=== PATIENT | female | born 1960 | race Caucasian/White ===

== ENCOUNTER → 2019-07-11 | Outpatient (CLI) | payer OTHER | LOC: MRI 07:27 | DX: M47.816 Spondylosis without myelopathy or radiculopathy, lumbar region (principal); M47.814 Spondylosis without myelopathy or radiculopathy, thoracic region; M51.24 Other intervertebral disc displacement, thoracic region; M51.26 Other intervertebral disc displacement, lumbar region; M12.88 Other specific arthropathies, not elsewhere classified, other specified site; M48.061 Spinal stenosis, lumbar region without neurogenic claudication; M51.27 Other intervertebral disc displacement, lumbosacral region ==

== ENCOUNTER → 2019-08-11 | Outpatient (CLI) | payer OTHER ==
[~2019-08-11] VITALS: Ht 170.2 cm; Wt 104.3 kg
[~2019-08-11] MED LIST: ASA81BEC PO; FLEXERIL PO; HYDROCODON-ACE1 EAC8 PO; NAPROXEN SODIU220 M2 PO; OMEPRAZOLE 20 M20 M1 PO; SUPER THERAVIT1 EACH PO; TURMERIC COMPL1 EACH PO; VITAMIN B COMP1 EACH PO; VITAMIN C500 M2 PO; herbal supplement PO
[2019-08-11 14:16] VITALS: BP 145/65
--- NOTE | 2019-08-11 14:45 | NUR ---
Pain Clinic Assessment: 1. History of Osteoarthritis: Not Applicable History of Rheumatoid Arthritis: Not Applicable 2. Height: 5 ft. 7 in. 170.2 cm. Weight: 230.0 lb. oz. 104.328 kg. Patient's BMI: 36.0 3. Vital Signs: BP: 145/65 Pulse: 65 Resp: 16 Temp: 02 Sat: 100 ECG Mon: 4. Pain Intensity: 3 5. Fall Risk: Dizziness: N Needs help standing or walking: N Fallen in the last 3 months: N Fall risk comments: 6. Patient on Blood Thinner: None 7. History of Hypertension: N 8. Opioid Therapy greater than 6 weeks: Y Opiate Contract Signed: 9. Risk Assessment Tool Provided: LOW-0 10. Functional Assessment Tool: 5 11. Recreational Drug Use: Never Drug Type: Tobacco Use: Never Smoker Tobacco Type: Amount or Packs/day: How Many Years: Alcohol Use: Yes Frequency: Weekly Quant: 3
--- NOTE | 2019-08-18 14:31 | HPC ---
[facility] Anjum Rojo [place] [address] PAIN MANAGEMENT CONSULTATION Name: AUGUSTIN ALFORD Room #: REG [facility].#: [id number] Admission: 08/11/19 Attend Phys: Alin Davis MD Discharge: Date of : 64 Report #: [id number] THIS REPORT FOR: cc: John Ledesma,Alin Lambert MD ~ THIS REPORT FOR: //name// CC: John Joya DATE OF SERVICE: 08/11/2019 CHIEF COMPLAINT: Low back pain radiating into her right calf. HISTORY OF PRESENT ILLNESS: The patient is a rhona 58-year-old who Dr. Ledesma has asked me to see today for assessment of lumbar radiculopathy. She has had a 2-year chronic pain in her lumbosacral region that wraps around her left pelvis, but also shoots down into her right leg following an L4-L5 distribution. It is worse with lying at night. She is having some sleep deprivation. It is improved with standing and walking. She described it as a cramping, sharp, stabbing, gnawing pain. Pain intensity can be as high as an 8/10. MEDICATIONS: Naproxen sodium 220 per day, vitamin C, vitamin B, turmeric, aspirin, herbal supplement pain alina, cyclobenzaprine 10 mg p.r.n. less than 3 times weekly and hydrocodone 7.5/325. She is very cautious taking it almost once a week and no more. She only uses it for very severe pain. She has omeprazole for history of gastritis. ALLERGIES: None. PAST MEDICAL HISTORY: Positive for anemia. She had a gastric ulcer many years ago and is on Prilosec. She does take a nonsteroidal anti-inflammatory drug, but just once daily. It does not seem to bother her with the Prilosec. She has never tried Celebrex. She has had an Achilles tendon release in 2009, cholecystectomy 2005, appendectomy 2004. She had a cyst on her esophagus and underwent a thoracotomy in [place], [place] by Dr. Mike Gonzalez in 1984. She also has had carpal tunnel release and some foot surgery in 2002. 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 She denies use of tobacco. She drinks alcohol 2 or 3 times a week in a social setting. PHYSICAL EXAMINATION: GENERAL: Very pleasant female, alert and oriented. No signs of depression or [address] [address] PAIN MANAGEMENT CONSULTATION Name: AUGUSTIN ALFORD Room #: REG [facility]#: [id number] Admission: 08/11/19 Attend Phys: Alin Davis MD Discharge: Date of : 64 Report #: [id number] anxiety. She is 5 feet 7 inches, 230 with a BMI of 36.0. She moves independently from sitting to standing position. Her gait is nonantalgic. VITAL SIGNS: Blood pressure 145/65, heart rate 65, respirations 16, O2 sat 100. CHEST: Clear. CARDIAC: Rhythm is regular with a small systolic ejection murmur, which is likely functional. She has no symptoms of a cardiac nature. No shortness of breath or dyspnea. MUSCULOSKELETAL: Examination of the spine reveals mild tenderness. There is straight leg raising discomfort consistent with radiculopathy on the right that goes all the way to the calf. NEUROLOGIC: I note no weakness and sensation is normal. Deep tendon reflexes are 2+, knees and ankles. IMAGING: MRI scan is reviewed and is consistent with her symptoms. She has central canal stenosis, bilateral recess stenosis, bilateral foraminal stenosis at L3-L4 and L4-L5. She has facet arthropathy at several levels. IMPRESSION: Right lumbar radiculopathy. Pain follows an L4-L5 distribution. I would recommend that we proceed with an injection. Preauthorization will be obtained and we will go forward with the injection at her soonest convenience and once we receive preauthorization. Followup visit planned in the pain clinic in 1-2 weeks. <ELECTRONICALLY SIGNED> By: Alin Davis MD 08/18/19 [id number] Alin Davis MD /nt
== END ==
LOC: PAIN 08-10 10:58
DX: M54.16 Radiculopathy, lumbar region (principal); Z79.899 Other long term (current) drug therapy; Z79.891 Long term (current) use of opiate analgesic

== ENCOUNTER → 2019-09-01 | Outpatient (CLI) | payer OTHER ==
[~2019-09-01] VITALS: Ht 170.2 cm; Wt 106.1 kg
--- NOTE | ~2019-09-01 | P ---
[facility] [place] [address] PROCEDURE REPORT Name: AUGUSTIN ALFORD Room #: REG [facility].#: [id number] Admission: 09/01/19 Attend Phys: Alin Davis MD Discharge: Date of : 64 Report #: [id number] THIS REPORT FOR: cc: John Ledesma,Alin Lambert MD ~ CC: John Davis DATE OF SERVICE: 09/01/2019 PROCEDURE NOTE PROCEDURE PERFORMED: Lumbar epidural steroid injection L3-L4, right paramedian under fluoroscopic guidance. INDICATION FOR PROCEDURE: The patient has lumbar radiculopathy and spinal stenosis at L3-L4 and L4-L5. She was seen on 08/11/2019. Refer to that dictation for assessment. DESCRIPTION OF PROCEDURE: After informed consent, the patient was taken to fluoroscopic suite, placed prone, skin prepped with ChloraPrep. Skin was anesthetized over the L3-L4 interspace. A 20-gauge Tuohy epidural needle was advanced into the epidural space using loss of resistance technique in the first attempt. There was no blood or CSF aspirated. A 1 mL of Omnipaque was injected. Good spread of dye was observed into the epidural space followed by 3 mL of 0.5% lidocaine mixed with 80 mg of triamcinolone. She tolerated the procedure well and was observed for 45 minutes and discharged. Follow up as needed. By: [id number] Alin Davis MD /siva
[2019-09-01 14:46] VITALS: BP 162/77
--- NOTE | 2019-09-01 14:50 | NUR ---
Pain Clinic Assessment: 1. History of Osteoarthritis: Not Applicable History of Rheumatoid Arthritis: Not Applicable 2. Height: 5 ft. 7 in. 170.2 cm. Weight: 234.0 lb. oz. 106.142 kg. Patient's BMI: 36.6 3. Vital Signs: BP: 162/77 Pulse: 64 Resp: 16 Temp: 02 Sat: 100 ECG Mon: 4. Pain Intensity: 7 5. Fall Risk: Dizziness: N Needs help standing or walking: N Fallen in the last 3 months: N Fall risk comments: 6. Patient on Blood Thinner: None 7. History of Hypertension: N 8. Opioid Therapy greater than 6 weeks: Y Opiate Contract Signed: 9. Risk Assessment Tool Provided: LOW-0 10. Functional Assessment Tool: 5 11. Recreational Drug Use: Never Drug Type: Tobacco Use: Never Smoker Tobacco Type: Amount or Packs/day: How Many Years: Alcohol Use: Yes Frequency: Quant:
== END | disposition home or self-care (01) ==
LOC: PAIN 07:06
DX: M54.16 Radiculopathy, lumbar region (principal); M48.061 Spinal stenosis, lumbar region without neurogenic claudication; Z79.82 Long term (current) use of aspirin; Z79.899 Other long term (current) drug therapy; Z79.891 Long term (current) use of opiate analgesic

== ENCOUNTER → 2019-11-01 | Outpatient (CLI) | payer OTHER ==
[~2019-11-01] VITALS: Ht 170.2 cm; Wt 107.5 kg
[~2019-11-01] MED LIST changes: +CELEBREX 200 M200 MG PO
--- NOTE | ~2019-11-01 | HPC ---
[facility] [address] PAIN MANAGEMENT CONSULTATION Name: AUGUSTIN ALFORD Room #: REG [facility].#: [id number] Admission: 11/01/19 Attend Phys: Alin Davis MD Discharge: Date of : 64 Report #: [id number] THIS REPORT FOR: cc: John Ledesma,Alin Lambert MD ~ CC: John Joya DATE OF SERVICE: 11/01/2019 Followup visit for chronic low back pain with radiculopathy. The patient received an epidural injection with about 10 days of good pain relief, pain gradually returning almost to baseline. We have elected to trial another injection today, we will see if we can get some sustained improvement. Pain is as before, mostly in the low back, right sided, radiating through the leg following a L4-L5 distribution. I reviewed her films with her from her last injection, also reviewed her MRI one more time. Central stenosis is likely the cause with bilateral recess stenosis also involving the foraminal output at L4-L5 and L3-L4. There seems to be on the plain film also a slight translocation of the vertebrae to the right. IMPRESSION: Chronic low back pain with radiculopathy. PROCEDURE: Lumbar epidural injection L3-L4, right paramedian approach. DESCRIPTION OF PROCEDURE: After informed consent, she was taken to fluoroscopic suite, placed prone, skin prepped with ChloraPrep. Skin anesthetized over the L3-L4 interspace to the right of midline. A 20-gauge Tuohy epidural needle advanced in the epidural space with loss of resistance. No blood nor CSF aspirated. A 1 mL of Omnipaque injected. Good spread of dye observed in the epidural space followed by 3 mL of 0.5% lidocaine mixed with 80 mg of triamcinolone. She tolerated the procedure well. She was observed for 45 minutes. There were no complications. She was discharged and we will see her back as needed. Series of injections is typically not recommended, but if she has a sustained response after an injection or 2, intermittent epidural injections may be helpful in lieu of surgery or other more aggressive approaches. I discussed this with her in some detail before discharge. By: [id number] Alin Davis MD /nt
[2019-11-01 09:44] VITALS: BP 135/74
--- NOTE | 2019-11-01 09:50 | NUR ---
Pain Clinic Assessment: 1. History of Osteoarthritis: DENIES History of Rheumatoid Arthritis: DENIES 2. Height: 5 ft. 7 in. 170.2 cm. Weight: 237.0 lb. oz. 107.503 kg. Patient's BMI: 37.1 3. Vital Signs: BP: 135/74 Pulse: 72 Resp: 15 Temp: 02 Sat: 100 ECG Mon: 4. Pain Intensity: 7 5. Fall Risk: Dizziness: N Needs help standing or walking: N Fallen in the last 3 months: N Fall risk comments: 6. Patient on Blood Thinner: None 7. History of Hypertension: N 8. Opioid Therapy greater than 6 weeks: Y Opiate Contract Signed: 9. Risk Assessment Tool Provided: LOW-0 10. Functional Assessment Tool: 5 11. Recreational Drug Use: Never Drug Type: Tobacco Use: Never Smoker Tobacco Type: Amount or Packs/day: How Many Years: Alcohol Use: Yes Frequency: Weekly Quant:
== END | disposition home or self-care (01) ==
LOC: PAIN 06:52
DX: M54.16 Radiculopathy, lumbar region (principal); G89.29 Other chronic pain; Z79.899 Other long term (current) drug therapy; Z98.890 Other specified postprocedural states

== ENCOUNTER → 2020-01-23 | Outpatient (CLI) | payer OTHER ==
[~2020-01-23] VITALS: Ht 170.2 cm; Wt 109.3 kg
[~2020-01-23] MED LIST changes: +ADIPEX-P37.5 MG PO; +DESYREL150 MG PO
--- NOTE | ~2020-01-23 | HPC ---
[facility] [place] [address] PAIN MANAGEMENT CONSULTATION Name: AUGUSTIN ALFORD Room #: REG [facility].#: [id number] Admission: 01/23/20 Attend Phys: Alin Davis MD Discharge: Date of : 64 Report #: [id number] THIS REPORT FOR: cc: John Ledesma,Alin Lambert MD ~ CC: John Joya DATE OF SERVICE: 01/23/2020 The patient returns to the pain clinic today for repeat epidural injection. She has had a really outstanding response to the injections with almost complete pain relief that lasts somewhere around 2-2.5 months. Pain then gradually returned and she has returned today for another injection. This will be her third injection in 6 months. Her last injection was about 3 months ago. We reviewed her MRI today to discuss future plans. She has multilevel disease with spinal stenosis. She has degenerative changes at disks at several levels. At the age of 59, a surgical option would probably necessitate a multilevel surgery and at this point if she is able to manage this conservatively with an occasional epidural injection, she would prefer that route. She also has some pain medication, but uses it very infrequently. Dr. Ledesma provides her with hydrocodone appropriately and she uses it sparingly. Sixty tablets might be enough to last her for 3 months. When she does use it she is grateful for the pain relief it provides. She has no side effects and she has only one prescriber. Her MME in this situation would be less than 10. All medications were reviewed and reconciled. There have been no significant changes in her last visit. She is not on a blood thinner. PHYSICAL EXAMINATION: She is 5 feet 7 inches, her BMI is 37.7. She understands that weight plays a role in chronic back pain. Her blood pressure is 147/77, heart rate 78, respirations 16. She moves independently from sitting to standing. Her gait is mildly antalgic. Straight leg raising bilaterally reproduces pain from her low back down into the legs bilaterally. Left is worse than right. She describes her symptoms with straight leg raising as aching, burning and a tightness. IMPRESSION: Lumbar radiculopathy secondary to multilevel spinal stenosis. Neural foraminal stenosis is also a component. PROCEDURE: L3-L4 epidural injection under fluoroscopic guidance. PROCEDURE NOTE: After both written and informed consent to include risk of spinal cord damage, increased pain, weakness and dural puncture, [place] [address] PAIN MANAGEMENT CONSULTATION Name: AUGUSTIN ALFORD Room #: REG [facility].#: [id number] Admission: 01/23/20 Attend Phys: Alin Davis MD Discharge: Date of : 64 Report #: [id number] taken to the fluoroscopy suite, placed in the prone position. After sterile prep and drape, a skin wheal with lidocaine was raised. A 22-gauge epidural Tuohy needle was inserted in the midline at L3-L4 with good loss to resistance. Negative aspiration for cerebrospinal fluid or blood was noted. Then 1 mL of Omnipaque under biplanar fluoroscopy showed good spread within the epidural space. This was followed with 80 mg of triamcinolone plus 3 mL of 0.5% lidocaine was then injected to flush the needle; it was removed. The patient was monitored for an appropriate period of time and discharged in good and stable condition. She tolerated the procedure well. There were no complications. She was taken to recovery room for observation and discharged. Plan is to see her as needed in the future. By: [id number] Alin Davis MD /nt
[2020-01-23 09:34] VITALS: BP 147/77
--- NOTE | 2020-01-23 09:49 | NUR ---
Pain Clinic Assessment: 1. History of Osteoarthritis: DENIES History of Rheumatoid Arthritis: DENIES 2. Height: 5 ft. 7 in. 170.2 cm. Weight: 241.0 lb. oz. 109.317 kg. Patient's BMI: 37.7 3. Vital Signs: BP: 147/77 Pulse: 78 Resp: 16 Temp: 02 Sat: 98 ECG Mon: 4. Pain Intensity: 5 5. Fall Risk: Dizziness: N Needs help standing or walking: N Fallen in the last 3 months: N Fall risk comments: 6. Patient on Blood Thinner: None 7. History of Hypertension: N 8. Opioid Therapy greater than 6 weeks: Y Opiate Contract Signed: 9. Risk Assessment Tool Provided: LOW-0 10. Functional Assessment Tool: 5 11. Recreational Drug Use: Never Drug Type: Tobacco Use: Never Smoker Tobacco Type: Amount or Packs/day: How Many Years: Alcohol Use: Yes Frequency: Quant:
== END ==
LOC: PAIN 06:47
PROVIDERS: ATTEND Anesthesiology Pain Medicine
DX: M54.16 Radiculopathy, lumbar region (principal); M48.061 Spinal stenosis, lumbar region without neurogenic claudication; Z79.899 Other long term (current) drug therapy; Z98.890 Other specified postprocedural states

== ENCOUNTER → 2020-05-08 | Outpatient (CLI) | payer OTHER | LOC: MRI 11:32 | PROVIDERS: ATTEND Family Medicine | DX: M65.872 Other synovitis and tenosynovitis, left ankle and foot (principal); M76.62 Achilles tendinitis, left leg; Z03.89 Encounter for observation for other suspected diseases and conditions ruled out ==

== ENCOUNTER → 2020-05-21 | Outpatient (CLI) | payer OTHER | LOC: BC 09:09 | PROVIDERS: ATTEND Family Medicine | DX: Z13.820 Encounter for screening for osteoporosis (principal) ==

== ENCOUNTER → 2020-05-25 | Outpatient (CLI) | payer OTHER ==
[~2020-05-25] VITALS: Ht 170.2 cm; Wt 105.7 kg
[2020-05-25 08:10] VITALS: BP 134/65
--- NOTE | 2020-05-25 08:13 | NUR ---
Pain Clinic Assessment: 1. History of Osteoarthritis: HANDS KNEE History of Rheumatoid Arthritis: DENIES 2. Height: 5 ft. 7 in. 170.2 cm. Weight: 233.0 lb. oz. 105.688 kg. Patient's BMI: 36.5 3. Vital Signs: BP: 134/65 Pulse: 77 Resp: 14 Temp: 02 Sat: 100 ECG Mon: 4. Pain Intensity: 4 5. Fall Risk: Dizziness: N Needs help standing or walking: N Fallen in the last 3 months: N Fall risk comments: 6. Patient on Blood Thinner: None 7. History of Hypertension: N 8. Opioid Therapy greater than 6 weeks: Y Opiate Contract Signed: 9. Risk Assessment Tool Provided: LOW-0 10. Functional Assessment Tool: 5 11. Recreational Drug Use: Never Drug Type: Tobacco Use: Never Smoker Tobacco Type: Amount or Packs/day: How Many Years: Alcohol Use: Yes Frequency: Weekly Quant:
== END | disposition home or self-care (01) ==
LOC: PAIN 06:45
PROVIDERS: ATTEND Anesthesiology Pain Medicine
DX: M54.16 Radiculopathy, lumbar region (principal); M48.061 Spinal stenosis, lumbar region without neurogenic claudication; M19.90 Unspecified osteoarthritis, unspecified site; Z98.890 Other specified postprocedural states; Z79.899 Other long term (current) drug therapy; Z79.82 Long term (current) use of aspirin

== ENCOUNTER → 2020-09-17 | Outpatient (CLI) | payer OTHER ==
[~2020-09-17] VITALS: Ht 170.2 cm; Wt 110.1 kg
[2020-09-17 13:25] VITALS: BP 129/79
--- NOTE | 2020-09-17 13:35 | NUR ---
Pain Clinic Assessment: 1. History of Osteoarthritis: HANDS KNEE History of Rheumatoid Arthritis: DENIES 2. Height: 5 ft. 7 in. 170.2 cm. Weight: 242.8 lb. oz. 110.134 kg. Patient's BMI: 38.0 3. Vital Signs: BP: 129/79 Pulse: 82 Resp: 18 Temp: 02 Sat: 100 ECG Mon: 4. Pain Intensity: 6 5. Fall Risk: Dizziness: N Needs help standing or walking: N Fallen in the last 3 months: N Fall risk comments: 6. Patient on Blood Thinner: None 7. History of Hypertension: N 8. Opioid Therapy greater than 6 weeks: Y Opiate Contract Signed: 9. Risk Assessment Tool Provided: LOW-0 10. Functional Assessment Tool: 5 11. Recreational Drug Use: Never Drug Type: Tobacco Use: Never Smoker Tobacco Type: Amount or Packs/day: How Many Years: Alcohol Use: Yes Frequency: Weekly Quant:
== END | disposition home or self-care (01) ==
LOC: PAIN 07:00
PROVIDERS: ATTEND Anesthesiology Pain Medicine
DX: M54.16 Radiculopathy, lumbar region (principal); G89.29 Other chronic pain; Z98.890 Other specified postprocedural states; Z79.899 Other long term (current) drug therapy

== ENCOUNTER → 2021-02-14 | Outpatient (CLI) | payer OTHER ==
[~2021-02-14] VITALS: Ht 170.2 cm; Wt 110.2 kg
[~2021-02-14] MED LIST changes: +MAGNESIUM250 M1 PO
[2021-02-14 14:43] VITALS: BP 137/71
--- NOTE | 2021-02-14 15:01 | NUR ---
Pain Clinic Assessment: 1. History of Osteoarthritis: HANDS KNEE History of Rheumatoid Arthritis: DENIES 2. Height: 5 ft. 7 in. 170.2 cm. Weight: 243.0 lb. oz. 110.224 kg. Patient's BMI: 38.1 3. Vital Signs: BP: 137/71 Pulse: 74 Resp: 20 Temp: 02 Sat: 100 ECG Mon: 4. Pain Intensity: 7-8 5. Fall Risk: Dizziness: N Needs help standing or walking: N Fallen in the last 3 months: N Fall risk comments: 6. Patient on Blood Thinner: None 7. History of Hypertension: N 8. Opioid Therapy greater than 6 weeks: Y Opiate Contract Signed: 9. Risk Assessment Tool Provided: LOW-0 10. Functional Assessment Tool: 5 11. Recreational Drug Use: Never Drug Type: Tobacco Use: Never Smoker Tobacco Type: Amount or Packs/day: How Many Years: Alcohol Use: Yes Frequency: Weekly Quant: 1
== END ==
LOC: PAIN 08:07
PROVIDERS: ATTEND Anesthesiology Pain Medicine
DX: M54.16 Radiculopathy, lumbar region (principal); Z72.89 Other problems related to lifestyle; Z79.899 Other long term (current) drug therapy

== ENCOUNTER → 2021-02-21 | Outpatient (CLI) | payer OTHER ==
[~2021-02-21] VITALS: Ht 170.2 cm; Wt 110.0 kg
[2021-02-21 15:15] VITALS: BP 150/71
--- NOTE | 2021-02-21 15:25 | NUR ---
Pain Clinic Assessment: 1. History of Osteoarthritis: HANDS KNEE History of Rheumatoid Arthritis: DENIES 2. Height: 5 ft. 7 in. 170.2 cm. Weight: 242.4 lb. oz. 109.952 kg. Patient's BMI: 38.0 3. Vital Signs: BP: 150/71 Pulse: 74 Resp: 18 Temp: 02 Sat: 100 ECG Mon: 4. Pain Intensity: 6 5. Fall Risk: Dizziness: N Needs help standing or walking: N Fallen in the last 3 months: N Fall risk comments: 6. Patient on Blood Thinner: None 7. History of Hypertension: N 8. Opioid Therapy greater than 6 weeks: Y Opiate Contract Signed: 9. Risk Assessment Tool Provided: LOW-0 10. Functional Assessment Tool: 5 11. Recreational Drug Use: Never Drug Type: Tobacco Use: Never Smoker Tobacco Type: Amount or Packs/day: How Many Years: Alcohol Use: Yes Frequency: Weekly Quant: 1
== END | disposition home or self-care (01) ==
LOC: PAIN 12:41
PROVIDERS: ATTEND Anesthesiology Pain Medicine
DX: M54.16 Radiculopathy, lumbar region (principal); G89.29 Other chronic pain; M19.90 Unspecified osteoarthritis, unspecified site; Z98.890 Other specified postprocedural states; Z79.899 Other long term (current) drug therapy